=== PATIENT | male | born 1980 | race Hispanic/Latino ===

== ENCOUNTER 2018-10-13 13:26 | Emergency (ER) | payer OTHER ==
--- NOTE | 2018-10-13 13:40 | Emergency Department Report ---
Blank Doc - Documentation Documentation: 37 y/o male with NO PMH c/o CP anmd Palpitations associated with SOB. c/o of t emperature intolerances and worsening symptoms. Denies illicit drugs or PE history.
--- NOTE | 2018-10-13 13:53 | Emergency Department Report ---
ED Chest Pain HPI - General Chief Complaint: Chest Pain Stated Complaint: CHEST PAIN Time Seen by Provider: 10/13/18 13:35 Source: patient Mode of arrival: Ambulatory Limitations: No Limitations - History of Present Illness Initial Comments: 37-year-old male with no past medical history presents complaining of anterior left-sided chest tightness, shortness of breath, and lightheadedness 2 weeks. Symptoms worse with activity and exertion. Intermittent palpitations and nausea without vomiting or diaphoresis. Patient does chew tobacco. He said his dad have much about prolapse but no history of CAD or stent placement. Patient also reports that he feels tired all the time but works 7 days a week. [place]. He denies calf tenderness, leg edema, history of PE/DVT. He does states he is under a lot of stress. He also works outside in a hot environment and states he does not typically drink much water. He does have some Gatorade and drinks Mountain Dew. He denies illicit drug use. He does not have a primary care doctor - Related Data Previous Rx's Medication Instructions Recorded Last Taken Type Ibuprofen [Motrin] 600 mg PO Q8H PRN #30 tablet 10/13/18 Unknown Rx Allergies Allergy/AdvReac Type Severity Reaction Status Date / Time No Known Allergies Allergy Unverified 10/13/18 13:26 Heart Score - HEART Score History: Slightly suspicious EKG: Normal Age: < 45 Risk factors: 1-2 risk factors Troponin: < normal limit HEART Score: 1 ED Review of Systems ROS: Stated complaint: CHEST PAIN Other details as noted in HPI Comment: All other systems reviewed and negative ED Past Medical Hx - Past Medical History Previous Medical History?: No - Surgical History Past Surgical History?: No - Social History Smoking Status: Heavy Tobacco Smoker Substance Use Type: Alcohol - Medications Home Medications: Home Medications Medication Instructions Recorded Confirmed Last Taken Type Ibuprofen [Motrin] 600 mg PO Q8H PRN #30 tablet 10/13/18 Unknown Rx ED Physical Exam - General Limitations: No Limitations - Other Other exam information: General: No limitations, patient is alert in no acute distress Head exam: Atraumatic, normocephalic Eyes exam: Normal appearance ENT: Moist mucous membrane Neck exam: Normal inspection, full range of motion, no meningismus nontender Respiratory exam: Clear to auscultation bilateral, no wheezes, rales, crackles Cardiovascular: Normal rate and rhythm, normal heart sounds Abdomen: Soft, nondistended, and nontender, with normal bowel sounds, no rebound, or guarding Extremity: Full range of motion normal inspection no deformity, no calf tenderness or edema Back: Normal Inspection, full range of motion, no tenderness Neurologic: Alert, oriented x3, cranial nerves intact, no motor or sensory deficit Psychiatric: normal affect, normal mood Skin: Warm, dry, intact ED Course Vital Signs 10/13/18 10/13/18 10/13/18 13:35 13:53 14:00 Temperature 98.0 F Pulse Rate 80 81 Respiratory 18 15 Rate Blood Pressure 152/93 127/76 O2 Sat by Pulse 97 98 Oximetry 10/13/18 10/13/18 14:15 14:30 Temperature Pulse Rate 78 73 Respiratory 15 16 Rate Blood Pressure 127/76 124/69 O2 Sat by Pulse 99 97 Oximetry DAVINA score - Davina Score Age > 65: (0) No Aspirin use within the Past 7 Days: (0) No 3 or more CAD Risk Factors: (0) No 2 or more Angina events in past 24 hrs: (0) No Known CAD with more than 50% Stenosis: (0) No Elevated Cardiac Markers: (0) No ST Deviation Greater than 0.5mm: (0) No DAVINA Score: 0 ED Medical Decision Making - Lab Data Result diagrams: 10/13/18 13:47 10/13/18 13:47 Lab Results 10/13/18 10/13/18 10/13/18 Range/Units 13:47 13:47 13:47 WBC 5.5 (4.5-11.0) K/mm3 RBC 5.26 H (3.65-5.03) M/mm3 Hgb 16.1 H (11.8-15.2) gm/dl Hct 46.0 H (35.5-45.6) % MCV 87 (84-94) fl MCH 31 (28-32) pg MCHC 35 H (32-34) % RDW 13.8 (13.2-15.2) % Plt Count 322 (140-440) K/mm3 Lymph % (Auto) 35.6 H (13.4-35.0) % [place] % (Auto) 11.6 H (0.0-7.3) % Eos % (Auto) 4.1 (0.0-4.3) % Baso % (Auto) 0.3 (0.0-1.8) % Lymph # 2.0 (1.2-5.4) K/mm3 [place] # 0.6 (0.0-0.8) K/mm3 Eos # 0.2 (0.0-0.4) K/mm3 Baso # 0.0 (0.0-0.1) K/mm3 Seg Neutrophils % 48.4 (40.0-70.0) % Seg Neutrophils # 2.6 (1.8-7.7) K/mm3 D-Dimer < 135.00 (0-234) ng/mlDDU Sodium 133 L (137-145) mmol/L Potassium 3.5 L (3.6-5.0) mmol/L Chloride 92.6 L (98-107) mmol/L Carbon Dioxide 25 (22-30) mmol/L Anion Gap 19 mmol/L BUN 5 L (9-20) mg/dL Creatinine 0.8 (0.8-1.5) mg/dL Estimated GFR > 60 ml/min BUN/Creatinine Ratio 6 % Glucose 104 H (75-100) mg/dL Calcium 9.3 (8.4-10.2) mg/dL Magnesium 2.30 (1.7-2.3) mg/dL Total Bilirubin 0.70 (0.1-1.2) mg/dL AST 46 H (5-40) units/L ALT 58 H (7-56) units/L Alkaline Phosphatase 65 (35-129) units/L Troponin T < 0.010 (0.00-0.029) ng/mL Total Protein 7.6 (6.3-8.2) g/dL Albumin 4.5 (3.9-5) g/dL Albumin/Globulin Ratio 1.5 % TSH (0.270-4.200) mlU/mL Free T4 (0.76-1.46) ng/dL 10/13/18 Range/Units 13:47 WBC (4.5-11.0) K/mm3 RBC (3.65-5.03) M/mm3 Hgb (11.8-15.2) gm/dl Hct (35.5-45.6) % MCV (84-94) fl MCH (28-32) pg MCHC (32-34) % RDW (13.2-15.2) % Plt Count (140-440) K/mm3 Lymph % (Auto) (13.4-35.0) % [place] % (Auto) (0.0-7.3) % Eos % (Auto) (0.0-4.3) % Baso % (Auto) (0.0-1.8) % Lymph # (1.2-5.4) K/mm3 [place] # (0.0-0.8) K/mm3 Eos # (0.0-0.4) K/mm3 Baso # (0.0-0.1) K/mm3 Seg Neutrophils % (40.0-70.0) % Seg Neutrophils # (1.8-7.7) K/mm3 D-Dimer (0-234) ng/mlDDU Sodium (137-145) mmol/L Potassium (3.6-5.0) mmol/L Chloride (98-107) mmol/L Carbon Dioxide (22-30) mmol/L Anion Gap mmol/L BUN (9-20) mg/dL Creatinine (0.8-1.5) mg/dL Estimated GFR ml/min BUN/Creatinine Ratio % Glucose (75-100) mg/dL Calcium (8.4-10.2) mg/dL Magnesium (1.7-2.3) mg/dL Total Bilirubin (0.1-1.2) mg/dL AST (5-40) units/L ALT (7-56) units/L Alkaline Phosphatase (35-129) units/L Troponin T (0.00-0.029) ng/mL Total Protein (6.3-8.2) g/dL Albumin (3.9-5) g/dL Albumin/Globulin Ratio % TSH 1.690 (0.270-4.200) mlU/mL Free T4 1.19 (0.76-1.46) ng/dL - EKG Data -: EKG Interpreted by Mi EKG shows normal: sinus rhythm, axis (qrs 62), QRS complexes (qrsd 98), ST-T waves (no stemi/t inv) Rate: normal (80) - EKG Data When compared to previous EKG there are: previous EKG unavailable - Radiology Data Radiology results: report reviewed (cxr: naf) - Medical Decision Making pt tx with NS and Po KCL toradol provided stable in ed plan to d/c home - Differential Diagnosis NV, angina, atypical chest pain, anxiety, hypothyroid, Pulm Emb Critical Care Time: No Critical care attestation.: If time is entered above; I have spent that time in minutes in the direct care of this critically ill patient, excluding procedure time. ED Disposition Clinical Impression: Chest pain, Hyponatremia, Hypokalemia Disposition: TO HOME OR SELFCARE Is pt being admited?: No Does the pt Need Aspirin: No Condition: Stable Instructions: Chest Pain (ED), Hyponatremia (ED), Hypokalemia (ED) Additional Instructions: Take the medication as prescribed. Follow up with your doctor or the clinic/doctor provided. Return if symptoms worsen as indicated by your discharge instructions. Drinking Gatorade or other fluids with electrolytes while working in hot environments. Prescriptions: Ibuprofen [Motrin] 600 mg PO Q8H PRN #30 tablet PRN Reason: Pain Referrals: [facility] [Provider Group] - 3-5 Days ([facility]) ROLANDO DONOVAN MD [Staff Physician] - 3-5 Days (adaptive physical education teacher) Time of Disposition: 15:52
[2018-10-13 14:14] LABS: Basophils % (Auto) 0.3 % (0.0-1.8); Eosinophils # (Auto) 0.2 K/mm3 (0.0-0.4); Eosinophils % (Auto) 4.1 % (0.0-4.3); Hemoglobin 16.1 gm/dl (11.8-15.2); Lymphocytes % (Auto) 35.6 % (13.4-35.0); Mean Corpuscular HGB Conc 35 % (32-34); Mean Corpuscular Volume 87 fl (84-94); Monocytes # (Auto) 0.6 K/mm3 (0.0-0.8); Monocytes % (Auto) 11.6 % (0.0-7.3); Platelet Count 322 K/mm3 (140-440); Red Blood Count 5.26 M/mm3 (3.65-5.03); Red Cell Distribution Width 13.8 % (13.2-15.2)
[2018-10-13 14:33] LABS: Alanine Aminotransferase 58 units/L (7-56); Albumin 4.5 g/dL (3.9-5); BUN/Creatinine Ratio 6; Blood Urea Nitrogen 5 mg/dL (9-20); Calcium 9.3 mg/dL (8.4-10.2); Hemolysis Index 9
[2018-10-13] MEDS ORDERED: NACL 0.9% 1000 ML 1,000 ML IV ONE (14:36)
[2018-10-13 14:44] VITALS: BP 124/69
[2018-10-13 14:47] LABS: Free T4 (Free Thyroxine) 1.19 ng/dL (0.76-1.46)
[2018-10-13] MEDS ORDERED: K-DUR PO ONE (15:45)
[2018-10-13] MEDS ORDERED: TORADOL IV ONE (15:46)
--- NOTE | 2018-10-13 15:50 | XRay Report ---
PROCEDURE: XR CHEST ROUTINE 2V TECHNIQUE: PA and lateral chest radiographs were obtained. HISTORY: chest pain and palpitations. COMPARISONS: None. FINDINGS: Heart: Normal. Mediastinum/Vessels: Normal. Lungs/Pleural space: No infiltrate, effusion, or pneumothorax. Bony thorax: No acute osseous abnormality. IMPRESSION: No pulmonary infiltrates are identified. This document is electronically signed by Sanjana Weiner MD., Oct 13 2018 03:48:04 PM ET
== END 2018-10-13 16:48 | disposition home or self-care (01) ==
LOC: ED 13:26
DX: E87.6 Hypokalemia (principal); E87.1 Hypo-osmolality and hyponatremia; R07.89 Other chest pain
CPT/HCPCS: 36415; 71046; 80053; 83735; 84439; 84443; 84484; 85025; 85379; 93005; 93010; 96361; 96374; 99284; J1885; J7030